=== PATIENT | female | born 1960 | race Caucasian/White ===

== ENCOUNTER → 2018-09-18 | Outpatient (CLI) | payer OTHER ==
--- NOTE | 2018-09-18 10:50 | Diagnostic Imaging Report ---
EXAMINATION: CHEST 2 VIEWS, ABDOMEN-1VIEW (KUB) , KUB 2 views INDICATION: Epigastric swelling/lump COMPARISON: None FINDINGS: Chest radiograph: LUNGS: Lungs are well inflated. A rounded opacity projects over the left upper lung. There is no evidence of pneumonia or pulmonary edema. PLEURA: No pleural effusion or pneumothorax. HEART AND MEDIASTINUM: The cardiomediastinal silhouette is unremarkable. BONES AND SOFT TISSUES: No acute radiographic abnormality. KUB: Nonobstructive bowel gas pattern. No evidence of free intraperitoneal air. No evidence of abnormal calcifications. No acute bony abnormality. TUBES and LINES: A shunt catheter is partially seen and projects over the right lower neck and courses through the anterior midline chest wall soft tissues into the right hemiabdomen and terminating in the pelvis There is a sharp turn of the catheter in the epigastric soft tissues on lateral chest radiograph. No evidence of discontinuity. IMPRESSION: A rounded opacity projects over the left upper lung, and may reflect costochondral calcification. However underlying lung nodule is not excluded, and chest CT is suggested for further evaluation. Partially seen [employer] shunt catheter which demonstrates no evidence of discontinuity. There is a partially seen sharp turn of the catheter at the level of the epigastric soft tissues on lateral view. This may be an expected finding, but suggest clinical correlation given clinical history of epigastric lump. No evidence of pneumonia or pulmonary edema. Signed by: Dr. Maame French MD on 09/18/2018 10:46 AM
--- NOTE | 2018-09-19 12:24 | Diagnostic Imaging Report ---
#[id number] - MGSCRBIL #BILATERAL DIGITAL SCREENING MAMMOGRAM WITH CAD: 09/18/2018 CLINICAL: Routine screening. Comparison is made to exam dated: 11/02/2010 mammogram - [facility]. The tissue of both breasts is heterogeneously dense. This may lower the sensitivity of mammography. Current study was also evaluated with a Computer Aided Detection (CAD) system. There are benign scattered calcifications in both breasts. No significant masses, calcifications, or other findings are seen in either breast. There has been no significant interval change. IMPRESSION: BENIGN There is no mammographic evidence of malignancy. A 1 year screening mammogram is recommended. The patient will be notified by letter of the results. Curtis fernando/michael:09/19/2018 11:10:08 [employer] Manager [employer]: Isabell CORREIA)(Sergey), [facility] letter sent: Normal Exam Mammogram BI-RADS: 2 Benign
== END ==
LOC: MAMMO 09:30
PROVIDERS: ATTEND Nurse Practitioner Family
DX: Z12.31 Encounter for screening mammogram for malignant neoplasm of breast (principal); Z98.2 Presence of cerebrospinal fluid drainage device; R19.06 Epigastric swelling, mass or lump
CPT/HCPCS: 71046; 74018; 77067

== ENCOUNTER → 2018-09-23 | Outpatient (CLI) | payer OTHER ==
--- NOTE | 2018-09-23 10:10 | Diagnostic Imaging Report ---
EXAM: BONE MINERAL DENSITY HISTORY: Bone mineralization evaluation COMPARISON: None DISCUSSION: Evaluation of the left hip and lumbar spine was performed utilizing DEXA Hologic bone densitometer. The study is technically adequate. Left hip femoral neck bone mineral density: 0.74 g/cm2, T-score is -1.0, Z-score is 0.2. Left hip total bone mineral density: 0.76 g/cm2, T-score is -1.5, Z-score is -0.6. Lumbar spine total bone mineral density: 1.00 gm/cm2, T-score is -0.4, Z-score is 0.9. 10 year fracture risk major osteoporotic fracture 11% and hip fracture 1.0%. Impression: Bone mineralization by WHO Classification is low bone mass/osteopenia, the fracture risk is increased. Signed by: Dr. Piyush Underwood M.D. on 09/23/2018 10:06 AM
== END ==
LOC: DX 09:16
PROVIDERS: ATTEND Nurse Practitioner Family
DX: Z13.820 Encounter for screening for osteoporosis (principal); E55.9 Vitamin D deficiency, unspecified; E78.5 Hyperlipidemia, unspecified; Z72.0 Tobacco use
CPT/HCPCS: 77080

== ENCOUNTER → 2018-10-17 | Outpatient (CLI) | payer OTHER ==
[~2018-10-17] MED LIST: IOPAMIDOL 370 MG/ML 200 ML INFUS..BTL INJ ONE; SODIUM CHLORIDE 0.9% 50ML 50 ML ONE
--- NOTE | 2018-10-17 13:49 | Diagnostic Imaging Report ---
EXAMINATION: CT of the chest, abdomen and pelvis with contrast. TECHNIQUE: Spiral CT images of the chest, abdomen and pelvis were performed from the lung apices to the lesser trochanters after the intravenous administration of 100 cc of Isovue-370 and the oral administration of Redicat. Coronal and sagittal reformatted images were obtained. COMPARISON: None. CLINICAL HISTORY:Abdominal pain, hysterectomy, abdominal surgery, asthma DISCUSSION: CHEST: LINES/TUBES: None. LUNGS AND AIRWAYS: Calcified granuloma anterior right lower lobe. 2 mm noncalcified nodule left upper lobe series 5 image 43. No routine follow-up is indicated per Fleischner Society 2017 guidelines. No consolidation, bronchiectasis, gross fibrotic change. PLEURA: The pleural spaces are clear. HEART AND MEDIASTINUM: Visualized portions of the thyroid gland appear normal. No ectasia or aneurysmal dilatation of the thoracic aorta. Pulmonary outflow tract is of normal caliber. No pericardial effusion. Great vessel origins are normal in caliber and configuration. Mild atherosclerotic calcification of the aortic arch and great vessel origins. Normal heart size. LYMPH NODES: No axillary, hilar, or mediastinal lymphadenopathy. Small calcified right hilar lymph nodes. BONES AND SOFT TISSUES: Osseous structures are discussed below. ABDOMEN/PELVIS: HEPATOBILIARY:No focal hepatic lesion or intrahepatic biliary ductal dilatation. The gallbladder is unremarkable. SPLEEN: Calcified granuloma anteriorly within the spleen. Small splenule along the lower pole. PANCREAS: No focal masses or ductal dilatation. ADRENALS: No adrenal nodules. KIDNEYS/URETERS: No hydronephrosis, stones, or solid mass lesions. PERITONEUM/RETROPERITONEUM: No free air or fluid. LYMPH NODES: No retroperitoneal or mesenteric lymphadenopathy. VESSELS: Atherosclerotic calcification of the abdominal aorta and major branch vessels without aneurysmal dilatation. Portal vein, splenic vein, and central superior mesenteric vein are patent. GI TRACT: Visualized segments of the large bowel show no evidence of distention or gross wall thickening. The stomach is partially collapsed with prominence of the rugal folds. No small bowel dilatation to suggest obstruction. BONES AND SOFT TISSUES: Partially visualized ventriculoperitoneal shunt catheter. No focal soft tissue abnormalities. No osseous destructive lesions. Degenerative disc changes of the lower cervical and thoracic spine. IMPRESSION: No acute thoracoabdominal CT abnormalities. Atherosclerotic vascular disease. Evidence of prior granulomatous infection. Signed by: Dr. Richard Perez M.D. on 10/17/2018 1:46 PM
== END ==
LOC: CT 11:28
PROVIDERS: ATTEND Nurse Practitioner Family
DX: R10.9 Unspecified abdominal pain (principal); I70.0 Atherosclerosis of aorta; R91.8 Other nonspecific abnormal finding of lung field; Z98.2 Presence of cerebrospinal fluid drainage device; Z87.891 Personal history of nicotine dependence
CPT/HCPCS: 71260; 74160; Q9967